=== PATIENT | female | born 1965 | race Two or more races ===

== ENCOUNTER 2024-01-14 05:51 | Day surgery (SDC) | payer OTHER ==
[2024-01-05 11:04] LABS: PH,URINE 7.5 (5.0-8.0); URINE APPEARANCE Clear; URINE BILIRRUBIN Negative (NEGATIVE); URINE BLOOD Moderate; URINE COLOR Yellow; URINE GLUCOSE Negative (NEGATIVE); URINE LEUKOCYTE Small; URINE NITRATE Negative; URINE PROTEIN Negative (NEGATIVE); URINE UROBILINOGEN 0.2 E.U./dl
[2024-01-05 11:05] LABS: HEMATOCRIT 36.4 % (36.0-45.00); HEMOGLOBIN 11.6 g/dL (12.0-15.00); MEAN CELL VOLUME 72.4 fL (80.00-100.00); MEAN CORPUSCULAR HEMOGLOBIN 23.1 pg (27.00-32.0); PLATELET COUNT 252 K/uL (150-450); RED BLOOD COUNT 5.02 M/uL (4.00-6.00); RED CELL DISTRIBUTION WIDTH 13.5 % (11.5-14.5)
[2024-01-05 11:08] LABS: URINE BACTERIA 781.1 uL (0.0-1933); URINE RBC 177.4 uL (0.0-20.8); URINE WBC 24.2 uL (0.0-23.2)
[2024-01-05 11:24] LABS: INR 1.07; PARTIAL THROMBOPLASTIN TIME 27.8 SECONDS (22.0-34.0); PROTHROMBIN TIME 11.2 SECONDS (9.0-11.5)
[2024-01-05 11:39] LABS: ALBUMIN 3.8 gm/dL (3.4-5.0); BILIRUBIN TOTAL 0.73 mg/dL (0.3-1.2); CALCIUM 9.6 mg/dL (8.5-10.1); CREATININE SERUM 0.53 mg/dL (0.55-1.02); GFR 117.67; GLOBULINA 3.4 G/DL (2.4-3.5); POTASSIUM 4.15 mEq/L (3.5-5.1); TOTAL PROTEIN 7.2 gm/dL (6.4-8.2)
[~2024-01-14] VITALS: Ht 157.5 cm; Wt 60.8 kg
[2024-01-14] MEDS ORDERED: CEFAZOLIN SODIUM 1,000 MG VIAL IV ONE (09:00)
[2024-01-14] MEDS ORDERED: TRAM1TAB98 PO (09:08)
== END 2024-01-14 12:00 | disposition home or self-care (01) ==
LOC: CIR.AMB 05:51
PROVIDERS: ATTEND Surgery
DX: C50.112 Malignant neoplasm of central portion of left female breast (principal)
CPT/HCPCS: 36561; C1751

== ENCOUNTER 2025-03-23 11:35 | Day surgery (SDC) | payer OTHER ==
[2025-03-19 11:36] VITALS: BP 140/86
[~2025-03-23] VITALS: Ht 157.5 cm; Wt 56.2 kg
[~2025-03-23 11:35] MED LIST: TRAM1TAB98 PO; [UNRECOGNIZED DRUG - OTHER]
[2025-03-23] MEDS ORDERED: CEFAZOLIN SODIUM 1,000 MG VIAL ONE (11:45)
[2025-03-23] MEDS ORDERED: TRAM1TAB98 PO (16:02)
[2025-03-23] MEDS ORDERED: LIDOCAINE HCL 1%/EPINEPHRINE 20ML VIAL IJ ONE (16:15)
[2025-03-23] MEDS ORDERED: BUPIVACAINE HCL 30 ML VIAL IJ ONE (16:15)
== END 2025-03-23 18:00 | disposition home or self-care (01) ==
LOC: CIR.AMB 11:35
PROVIDERS: ATTEND Surgery
DX: T82.594A Other mechanical complication of infusion catheter, initial encounter (principal); C50.112 Malignant neoplasm of central portion of left female breast